=== PATIENT | male | born 1960 | race Caucasian/White ===

== ENCOUNTER → 2018-11-18 | Outpatient (CLI) | payer MEDICARE ==
[~2018-11-18] VITALS: Ht 180.3 cm; Wt 79.4 kg
[2018-11-18] VITALS (11 sets, daily range): BP systolic 161–200; BP diastolic 86–104
[~2018-11-18] MED LIST: ACETAMINOPHEN325 M1 PO; ASPIR 8181 MG PO; ASPIRIN EC325 M1 PO; ASPIRIN325 PO; COLACE 100 MG100 MG PO; D3 + K2 DOTS 11 EACH PO; ENOXAPARIN30 MG/0.3 SQ; FISH OIL 1,0001 EAC5 PO; FOLIC ACID 40400 MCG PO; HUMALOG100 UNIT/1 SUBQ; HYDRALAZINE 10M10 MG PO; HYDRALAZINE 2525 M1 PO; IRON325 PO; LEVEMIR100 UNIT/1 SUBQ; LIPITOR40 MG PO; LISINOPRIL10 MG PO; MOM PO; NITROGLYCERIN0.4 MG SUBLING; NORCO 5-325 TA1 EACH PO; NORVASC10 MG PO; NORVASC5 MG PO; PLAVIX 75 MG TA75 M1 PO; RENVELA800 MG PO; TOPROL XL25 MG PO; VANCOMYCIN750 MG/151 IV; VITAMIN B-12500 MC3 PO; VITAMIN B-6100 MG PO; WELLBUTRIN100 MG PO; ZESTRIL10 MG PO; ZOCOR40 MG PO; bumex PO
[2018-11-18 08:38] LABS: HEMOGLOBIN 12.1 gm/dL (14.0-18.0); MCH 29.9 pg (26.0-34.0); MCHC 33.5 g/dL (28.0-37.0); MCV 89.3 fL (80.0-100.0); MPV 8.9 fl. (7.2-11.1); RBC 4.03 mil/uL (4.50-6.00); RDW-CV 15.3 % (10.5-14.5); WBC 5.3 thou/uL (4.0-11.0)
[2018-11-18 08:51] LABS: APTT 21.3 Seconds (25.0-31.3); INR 0.9; PROTIME 9.7 Seconds (9.20-11.50)
[2018-11-18 09:12] LABS: ALBUMIN 3.9 g/dL (3.4-5.0); ALKALINE PHOSPHATASE 89 U/L (46-116); ANION GAP 7 mmol/L (7-16); BUN 40 mg/dL (7-18); CALCIUM 8.7 mg/dL (8.5-10.1); CHLORIDE 98 mmol/L (98-107); CHOLESTEROL 131 mg/dL (<200); CO2 31 mmol/L (21-32); CREATININE 4.7 mg/dL (0.6-1.3); GLUCOSE 307 mg/dL (70-99); HDL CHOLESTEROL 89 mg/dL (>40); LDL CHOLESTEROL 31 mg/dL (<100); POTASSIUM 4.9 mmol/L (3.5-5.1); SERUM ASSESSMENT Clear; SGOT 17 U/L (15-37); SGPT 24 U/L (30-65); SODIUM 136 mmol/L (136-145); TC:HDL 1.5 Ratio (Not establshd); TOTAL BILIRUBIN 0.5 mg/dL (<0.1-1.0); TOTAL PROTEIN 7.4 g/dL (6.4-8.2); TRIGLYCERIDE 58 mg/dL (<150); VLDL 12 mg/dL (<40)
[2018-11-18 11:58] LABS: HEMATOCRIT 33.1 % (42.0-52.0); HEMOGLOBIN 11.7 gm/dL (14.0-18.0); MCH 31.5 pg (26.0-34.0); MCHC 35.3 g/dL (28.0-37.0); MCV 89.3 fL (80.0-100.0); MPV 8.7 fl. (7.2-11.1); RBC 3.71 mil/uL (4.50-6.00); RDW-CV 14.9 % (10.5-14.5); WBC 6.1 thou/uL (4.0-11.0)
[2018-11-18 12:19] LABS: ALBUMIN 3.5 g/dL (3.4-5.0); CALCIUM 8.7 mg/dL (8.5-10.1); CREATININE 4.7 mg/dL (0.6-1.3); TOTAL BILIRUBIN 0.4 mg/dL (<0.1-1.0); TOTAL PROTEIN 6.7 g/dL (6.4-8.2)
--- NOTE | 2018-11-18 15:39 | EKG ---
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
--- NOTE | 2018-11-18 15:42 | EKG ---
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
--- NOTE | 2018-11-18 17:08 | CARD ---
[address] [address] CARDIAC CATH REPORT Name: BRANDI BARBER Room: [facility] POLIManuela Krishnan#: [id number] Admission: 11/18/18 Attend Phys: Devner Carey MD, F Discharge: Date of : 62 Report #: [id number] THIS REPORT FOR: //name// APPROVED REPORT Study performed: 11/18/2018 08:07:57 Patient Details Patient Status: Out-Patient Room #: The patient is a 57 year-old male Event Personnel Denver Carey Senior Warehouse Clerk, Evelia Bah RN RN, Sourav Means (Deonte) Alina Rosario Brad COMPENSATION ADVISOR Monitor Procedures Performed Left Heart Cath w/or w/o Coronaries [id number] [facility] JENN[address]ER Place w/wo Plasty Single LAD [id number] , Selective Right and Left Coronary Angiography Indication Positive stress test Risk Factors Hypercholesterolemia, Hypertension, Diabetes , Dialysis Admission/Lab Medications/Medications given during procedure Heparin Unfract. Procedure Narrative The patient was brought electively to the Cardiac Catheterization Laboratory and was prepped and draped in a sterile manner. The right wrist was infiltrated with 2% Lidocaine subcutaneous anesthesia. A Slender Glidesheath sheath was inserted into the right radial artery. Coronary angiography was performed using coronary diagnostic catheters. The right coronary system was accessed and visualized with a 6 fr JL4 catheter. The left coronary system was accessed and visualized with a 6fr JR4 catheter. Left ventricular/Aortic Valve gradient assessed via catheter pullback. Closure device was deployed with a 6 Fr vasc-band. The patient tolerated the procedure well and there were no complications associated with the procedure. There was no hematoma. Intraoperative [place] [address] CARDIAC CATH REPORT Name: BRANDI BARBER Room: [facility]#: [id number] Admission: 11/18/18 Attend Phys: Denver Carey MD, F Discharge: Date of : 62 Report #: [id number] Sedation start time: 948 Case end Time: 1026 Fentanyl 50 mcg Fluoro Time: 4.0 minutes Dose: DAP 76413 cGycm2 51 mGy Contrast Type and Amount: Visipaque 190 ml Coronary Angiography The patient's coronary anatomy is right dominant. Diagnostic Cath Left Main 0% stenosis LAD 80% ostial stenosis, and 40% distal stenosis noted Circumflex distal circumflex had a 90% stenosis just prior to birfurcating into 2 small terminal posterolateral branches OM1 50% mid stenosis Right Coronary 0% stenosis Ramus 0% stenosis Left Ventriculography Left Ventriculography was not performed. Hemodynamics The aortic pressure is 100/44 mmHg with a mean of 67 mmHg. The left ventricular pressure is 93/5 mmHg with a mean of mmHg. The left ventricular end diastolic pressure is 6 mmHg. There was no gradient across the aortic valve upon pullback. Pullback from the left ventricle to the aorta revealed no gradient across the aortic valve. PCI Technique Lesion Anticoagulation was achieved with Heparin. Patient was preloaded with Plavix. Percutaneous coronary intervention was performed on the proximal left anterior descending artery segment. The lesion stenosis prior to intervention was 80% with GAGE 3 flow. A 6F XB LAD 3.5 Guide Catheter was used to engage the LM ostium. A IG: BMW 190cm Interventional Guidewire was used to cross the lesion. STENT DEPLOYMENT A drug-eluting stent Xience Esme 3.0X15mm was inserted and inflated up to 12.00atm for 18seconds. Repeat angiography revealed the following post-stent deployment results: 0% stenosis. Additional Inflation: 14.00atm for 17seconds. Final angiography reveals 0 % stenosis with GAGE 3 [place] [address] CARDIAC CATH REPORT Name: BRANDI BARBER Room: [facility]#: [id number] Admission: 11/18/18 Attend Phys: Denver Carey MD, F Discharge: Date of : 62 Report #: [id number] flow. Conclusion 1. 80% stenosis of the lad ostium 2. 90% stenosis of the distal circumflex prior to bifurcating into 2 small terminal posterolateral branches 3. successful placement of a drug eluting stent in the proximal lad Recommendations Cardiac Rehabilitation Referral Aggressive Medical Therapy <ELECTRONICALLY SIGNED> By: Denver Carey MD, FACC 11/18/181707 07 07Dajoaquin Carey MD, [facility] /INF
== END | disposition home or self-care (01) ==
LOC: M.CL 07:52
PROVIDERS: Internal Medicine Cardiovascular Disease
DX: I25.10 Atherosclerotic heart disease of native coronary artery without angina pectoris (principal); I10 Essential (primary) hypertension; E10.9 Type 1 diabetes mellitus without complications; E78.00 Pure hypercholesterolemia, unspecified; G62.9 Polyneuropathy, unspecified; Z90.49 Acquired absence of other specified parts of digestive tract; Z86.73 Personal history of transient ischemic attack (TIA), and cerebral infarction without residual deficits; Z98.890 Other specified postprocedural states; Z79.82 Long term (current) use of aspirin; Z79.899 Other long term (current) drug therapy; Z79.4 Long term (current) use of insulin; Z79.01 Long term (current) use of anticoagulants

== ENCOUNTER 2019-01-01 07:50 | Observation (INO) | payer MEDICARE, BC ==
[~2019-01-01] VITALS: Ht 180.3 cm; Wt 73.9 kg
--- NOTE | ~2019-01-01 | D ---
[address] [address] DISCHARGE SUMMARY Name: TALITAHoangBRANDI Room: [address] Megan MBelen#: [id number] Admission: 01/01/19 Attend Phys: Anthony Edwards MD, Discharge: 01/02/19 Date of : 62 Report #: [id number] THIS REPORT FOR: //name// CC: Saroj Edwards DATE OF SERVICE: 01/02/2019 FINAL DISCHARGE DIAGNOSES: 1. Coronary artery disease with angina. 2. Status post percutaneous coronary intervention to the circumflex with prior percutaneous coronary intervention of the left anterior descending. 3. Hyperlipidemia. 4. Hypertension. 5. Diabetes mellitus. 6. End-stage renal disease. PROCEDURES: 01/01/2019 -- left heart catheterization, selective coronary arteriography and percutaneous coronary intervention of the first marginal branch of the circumflex. HOSPITAL COURSE: The patient is a very pleasant 58-year-old male with hypertension, diabetes, end-stage renal disease and coronary artery disease. He underwent prior percutaneous coronary intervention to the proximal LAD. It was noted to have a significant circumflex lesion at that time, which was not approached in the acute setting. He was readmitted on 01/01/2019 and underwent cardiac catheterization, which revealed a widely patent proximal LAD stent with 75-80% tubular first marginal narrowing. There was 80% narrowing of a small distal circumflex. Given this data, I elected to proceed with percutaneous coronary intervention to the first marginal branch of the circumflex, deploying one 2.5 x 28 mm Xience Esme drug-eluting stent with 0% residual narrowing and GAGE 3 flow of the distal vessel. The patient did well post-procedurally and there was good hemostasis at the right radial side of catheterization. Troponin iva inconsequentially to 0.43 units. Lab on 01/02/2019 revealed sodium 141, potassium 4.3, BUN 53, creatinine 5.8, glucose 63 mg percent. Hemoglobin 12.6, white blood cell count 5900 with 219,000 platelets. Cholesterol 131, HDL 66, LDL 58, triglycerides 77 mg percent. He ambulated in the hallways without difficulty and as noted above, there was good hemostasis at the right radial site of catheterization. He was discharged to home on the following medications: Amlodipine 10 mg daily, aspirin 81 mg daily, atorvastatin 40 mg daily, clopidogrel or Plavix [address] [place] [address] DISCHARGE SUMMARY Name: PAVAN BARBERBARBARA ARCINIEGA [address] [id number] Admission: 01/01/19 Attend Phys: Anthony Edwards MD, Discharge: 01/02/19 Date of : 62 Report #: [id number] with 600 mg dose given periprocedurally, cyanocobalamin or vitamin B12 500 mcg daily, ferrous sulfate 65 mg daily, folic acid 400 mcg daily, Lantus insulin 16 units at bedtime, Humalog insulin 5 units before meals, metoprolol succinate 25 mg daily, pyridoxine or vitamin B6 100 mg daily, sevelamer or Renvela 800 mg t.i.d., sodium bicarbonate 1000 mg b.i.d., vitamin D3 daily, Bumex 2 mg daily and p.r.n. sublingual nitroglycerin. The patient is scheduled to return to see Dr. Pearson on 01/22/2019 at 1130 hours. Thus, the patient is discharged to home in stable condition on the aforementioned medications with followup as iterated above. By: 0933 Jairo Edwards MD, [facility] /nt
[2019-01-01] MEDS ORDERED: HUMALOG100 UNIT/1 SUBQ (08:38)
[2019-01-01] MEDS ORDERED: LANTUS SUBQ (08:38)
[2019-01-01] MEDS ORDERED: SODIUM BICARBO454 GM PO (08:40)
[2019-01-01 09:04] VITALS: BP 114/72
[2019-01-01 09:15] LABS: HEMATOCRIT 36.8 % (42.0-52.0); HEMOGLOBIN 12.1 gm/dL (14.0-18.0); MCH 30.1 pg (26.0-34.0); MCHC 32.9 g/dL (28.0-37.0); MCV 91.3 fL (80.0-100.0); MPV 8.9 fl. (7.2-11.1); RBC 4.03 mil/uL (4.50-6.00); RDW-CV 15.4 % (10.5-14.5); WBC 5.8 thou/uL (4.0-11.0)
[2019-01-01 09:20] LABS: ANION GAP 6 mmol/L (7-16); BUN 38 mg/dL (7-18); CALCIUM 8.8 mg/dL (8.5-10.1); CHLORIDE 97 mmol/L (98-107); CO2 37 mmol/L (21-32); CREATININE 4.5 mg/dL (0.6-1.3); GLUCOSE 385 mg/dL (70-99); POTASSIUM 5.1 mmol/L (3.5-5.1); SODIUM 140 mmol/L (136-145)
[2019-01-01 09:23] LABS: APTT 27.6 Seconds (25.0-31.3); PROTIME 10.3 Seconds (9.20-11.50)
[2019-01-01 10:11] LABS: CHOLESTEROL 131 mg/dL (<200); HDL CHOLESTEROL 66 mg/dL (>40); LDL CHOLESTEROL 50 mg/dL (<100); TRIGLYCERIDE 77 mg/dL (<150); VLDL 15 mg/dL (<40)
[2019-01-01 10:14] LABS: SERUM ASSESSMENT Clear
[2019-01-01 14:16] VITALS: BP 114/72
[2019-01-01 16:20] VITALS: BP 206/95
--- NOTE | 2019-01-01 16:37 | EKG ---
[place] [address] ELECTROCARDIOGRAM REPORT Name: TALITAHoangBRANDI Room: [address] M.R.#: [id number] Admission: 01/01/19 Attend Phys: Anthony Edwards MD, Discharge: Date of : 62 Report #: [id number] THIS REPORT FOR: //name// 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: : 1960 Requested By: Anthony Edwards Order Number: [id number] Reading MD: Berny Pearson Measurements Intervals [place] Rate: 67 P: 67 AR: 193 QRS: -5 QRSD: 91 T: 63 QT: 451 QTc: 476 Interpretive Statements Sinus rhythm Abnormal R-wave progression, early transition Abnormal inferior Q waves ST elevation, consider inferior injury Borderline prolonged QT interval Baseline wander in lead(s) V1,V5 Compared to ECG 11/18/2018 11:15:16 Inferior Q waves now present Q waves now present ST (T wave) deviation now present Myocardial infarct finding now present Electronically Signed On 01-01-2019 16:37:30 CDT by Berny Pearson [email or web address] <ELECTRONICALLY SIGNED> By: Berny Pearson MD, [facility] 01/01/19 1637 1156 1156 Berny Pearson MD, [facility] /EPI
--- NOTE | 2019-01-01 16:37 | EKG ---
[place] [address] ELECTROCARDIOGRAM REPORT Name: BRANDI BRABER Room: [address] M.R.#: [id number] Admission: 01/01/19 Attend Phys: Anthony Edwards MD, Discharge: Date of : 62 Report #: [id number] THIS REPORT FOR: //name// [facility] Test Date: 2019-01-01 Test Time: 09:07:04 Pat Name: BRANDI BARBER Department: Room: [facility] Gender: M Educational Therapist: : 1960 Requested By: Anthony Edwards Order Number: [id number] Reading MD: Berny Pearson Measurements Intervals [place] Rate: 70 P: 61 CA: 193 QRS: -5 QRSD: 83 T: 73 QT: 437 QTc: 472 Interpretive Statements Sinus rhythm Abnormal R-wave progression, early transition Minimal ST elevation, inferior leads Compared to ECG 11/18/2018 11:15:16 ST (T wave) deviation now present Electronically Signed On 01-01-2019 16:36:58 CDT by Berny Pearson [email or web address] <ELECTRONICALLY SIGNED> By: Berny Pearson MD, FAC 01/01/19 1636 Berny Pearson MD, [facility] /EPI
--- NOTE | 2019-01-01 18:43 | NUR ---
PATIENT RESTING IN BED. NEFTALI HAD HYPERTENSION AFTER CARDIAC CATH AND WAS GIVEN METOPROLO ANND AMLODIPINE PER DR MARIA. CODYKY ROUNDING COMPLETED FOR PATIENT SAFETY
[2019-01-01 20:00] VITALS: BP 156/52
[2019-01-02] VITALS: BP 122/62
[2019-01-02 04:00] VITALS: BP 158/66
--- NOTE | 2019-01-02 05:13 | NUR ---
PT ALERT ORIENTED. UP WITH WALKER AND STAND BY ASSIST. TELEMETRY SHOWS SR. ON RA. PLAN FOR DC TODAY.
[2019-01-02 08:18] LABS: HEMATOCRIT 37.3 % (42.0-52.0); HEMOGLOBIN 12.6 gm/dL (14.0-18.0); MCH 30.4 pg (26.0-34.0); MCHC 33.9 g/dL (28.0-37.0); MCV 89.6 fL (80.0-100.0); MPV 8.8 fl. (7.2-11.1); RBC 4.16 mil/uL (4.50-6.00); RDW-CV 14.8 % (10.5-14.5); WBC 5.9 thou/uL (4.0-11.0)
[2019-01-02 08:39] LABS: ALBUMIN 3.7 g/dL (3.4-5.0); CALCIUM 9.3 mg/dL (8.5-10.1); CREATININE 5.8 mg/dL (0.6-1.3); POTASSIUM 4.3 mmol/L (3.5-5.1); TOTAL BILIRUBIN 0.4 mg/dL (<0.1-1.0); TOTAL PROTEIN 7.6 g/dL (6.4-8.2); TROPONIN-I LEVEL 0.43 ng/mL (<0.06)
[2019-01-02 09:25] VITALS: BP 154/61
--- NOTE | 2019-01-02 10:49 | CARD ---
[address] [address] CARDIAC CATH REPORT Name: BRANDI BARBER Room: [address] Megan Krishnan#: [id number] Admission: 01/01/19 Attend Phys: Anthony Edwards MD, Discharge: 01/02/19 Date of : 62 Report #: [id number] THIS REPORT FOR: //name// APPROVED REPORT Study performed: 01/01/2019 09:12:34 Patient Details The patient is a 58 year-old male Event Personnel Anthony Edwards Shell Molding Roller Blast Operator, Lucy Hamilton Cone Treater, Sourav Means (R) Monitor, Collins Fuller RN COMPLEX CARE Scrub Procedures Performed JENNIFER Place w/wo Plasty Addl BR OM 1 C9601 DESADDL; left heart catheterization and selective coronary arteriography Indication Chest pain Risk Factors Hypercholesterolemia, Hypertension Previous Procedures/Diagnoses Previous PCI Admission/Lab Medications/Medications given during procedure Aspirin, Platelet Aff. Inhib., Angiomax bolus and infusion Procedure Narrative The patient was brought electively to the Cardiac Catheterization Laboratory and was prepped and draped in a sterile manner. The right wrist was infiltrated with 2% Lidocaine subcutaneous anesthesia. A Slender Glidesheath sheath was inserted into the . Coronary angiography was performed using coronary diagnostic catheters. The right coronary system was accessed and visualized with a JR4 5fr catheter. The left coronary system was accessed and visualized with a 6F XB LAD 3.5 catheter. The left ventricle was accessed and visualized with a Diagnostic catheter. Closure device was deployed with a Fr Vascband. The patient tolerated the procedure well and there were no complications associated with the procedure. [place] [address] CARDIAC CATH REPORT Name: ELISABETHBRANDI Room: [address] Megan Krishnan#: [id number] Admission: 01/01/19 Attend Phys: Anthony Edwards MD, Discharge: 01/02/19 Date of : 62 Report #: [id number] Intraoperative Conscious Sedation Fentanyl mcg Dose: 1592 mGy Contrast Type and Amount: Visipaque 210 ml Coronary Angiography The patient's coronary anatomy is right dominant. Diagnostic Cath Left Main 0% narrowing LAD Widely patent proximal LAD stent with 50% distal LAD narrowing Circumflex 80% tubular narrowing of the prominent first marginal branch of the circumflex with 80% stenosis of a very small distal posterior division of the circumflex Right Coronary 0% narrowing Hemodynamics The aortic pressure is 101/52 mmHg with a mean of 73 mmHg. The left ventricular pressure is 105/-1 mmHg with a mean of mmHg. The left ventricular end diastolic pressure is 1 mmHg. There was no gradient across the aortic valve upon pullback. PCI Technique Lesion Anticoagulation was achieved with Angiomax. Percutaneous coronary intervention was performed on the first obtuse marginal branch segment. The lesion stenosis prior to intervention was 80% with GAGE 3 flow. A 6F XB LAD 3.5 Guide Catheter was used to engage the ostium. A IG: BMW 190cm Interventional Guidewire was used to cross the lesion. BALLOON DILATION A Balloon catheter Trek RX 2.25 X 15 was inserted and inflated up to 16.00atm for 13seconds. STENT DEPLOYMENT A stent Xience Esme 2.5X28mm was inserted and inflated up to 16.00atm for 13seconds. Final angiography reveals 0 % stenosis with GAGE 3 flow. Conclusion #1 significant coronary artery disease characterized by the following: [place] [address] CARDIAC CATH REPORT Name: TALITAHoangBRANDI Room: [address] Megan Krishnan#: [id number] Admission: 01/01/19 Attend Phys: Anthony Edwards MD, Discharge: 01/02/19 Date of : 62 Report #: [id number] A widely patent proximal LAD stent with 50% distal LAD narrowing B 80% tubular stenosis of the prominent first marginal branch of the circumflex with 80% narrowing of a small distal circumflex #2 normal left-sided hemodynamics study #3 successful percutaneous coronary intervention with deployment of a drug-eluting stent at site of 80% tubular first marginal stenosis with 0% residual narrowing and GAGE-3 flow the distal vessel Recommendations Cardiac Risk Reduction Program Medications Administered Clopidogrel Diagnostic Cath Approved by: Anthony Edwards MD Date/Time: 01/02/2019 10:48:29 <ELECTRONICALLY SIGNED> By: Anthony Edwards MD, [facility] 01/02/19 1049 1049 1049Anthony Edwards MD, [facility] /INF
--- NOTE | 2019-01-02 13:08 | NUR ---
ORDER RECEIVED TO DISCHARGE PATIENT HOME TO SELF CARE. MED REC, MEDICATION EDUCATION, STROKE EDUCATION, AND NEED FOR FOLLOW UP APPOINTMENTS COVERED WITH PATIENT AND STATED UNDERSTOOD. NO LIFTING WITH RIGHT ARM OVER 10 POUNDS FOR 1 WEEK WAS EXPLAINED AND STATED UNDERSTOOD BY PATIENT. DISCHARGE TIME OF 10:25. PAITENT TAKEN VIA WHEELCHAIR BY STAFF TO AWAITING CAR WITH SPOUSE PRESENT. DISCHAREG TIME OF 10:25.
--- NOTE | 2019-01-03 11:38 | EKG ---
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: : 1960 Requested By: Anthony Edwards Order Number: [id number] Reading MD: Berny Pearson Measurements Intervals [place] Rate: 63 P: 60 ID: 188 QRS: -8 QRSD: 89 T: 75 QT: 456 QTc: 467 Interpretive Statements Sinus rhythm Abnormal inferior Q waves Minimal ST elevation, inferior leads Compared to ECG 01/01/2019 11:56:48 Myocardial infarct finding no longer present ST (T wave) deviation still present Electronically Signed On 01-03-2019 11:38:12 CDT by Berny Pearson [email or web address] <ELECTRONICALLY SIGNED> By: Berny Pearson MD, [facility] 01/03/19 1138 7 7 Berny Pearson MD, [facility] /EPI
== END 2019-01-02 10:38 | disposition home or self-care (01) ==
LOC: M.CL 07:50 → M.TBA-CV 10:56 → M.2W 13:35
PROVIDERS: ADMIT Internal Medicine
DX: I25.119 Atherosclerotic heart disease of native coronary artery with unspecified angina pectoris (principal); E78.00 Pure hypercholesterolemia, unspecified; E78.5 Hyperlipidemia, unspecified; I12.0 Hypertensive chronic kidney disease with stage 5 chronic kidney disease or end stage renal disease; E11.22 Type 2 diabetes mellitus with diabetic chronic kidney disease; N18.6 End stage renal disease; Z98.61 Coronary angioplasty status

== ENCOUNTER → 2019-01-04 | Outpatient (CLI) | payer MEDICARE, BC ==
[~2019-01-04] MED LIST changes: +BACTRIM DS TAB1 EACH PO; +KEFLEX500 M1 PO; +LANTUS SUBQ; +LANTUS100 UNIT/M SUBQ; +LEVAQUIN 500 M500 M3 PO; +SODIUM BICARBO454 GM PO; -VITAMIN B-12500 MC3 PO; +VITAMIN B-12500 MCG PO
== END ==
LOC: M.LAB 15:25
DX: R73.09 Other abnormal glucose (principal)

== ENCOUNTER 2019-01-18 06:56 | Emergency (ER) | payer MEDICARE, BC ==
[~2019-01-18] VITALS: Ht 180.3 cm; Wt 79.8 kg
[~2019-01-18 06:56] MED LIST changes: -BACTRIM DS TAB1 EACH PO; -KEFLEX500 M1 PO; -LANTUS100 UNIT/M SUBQ; -LEVAQUIN 500 M500 M3 PO; +VITAMIN B-12500 MC3 PO; -VITAMIN B-12500 MCG PO
[2019-01-18] MEDS ORDERED: LANTUS100 UNIT/M SUBQ (07:13)
[2019-01-18] MEDS ORDERED: HUMALOG100 UNIT/1 SUBQ (07:13)
[2019-01-18 08:11] LABS: ABSOLUTE BASOPHILS 0.1 thou/uL (0.0-0.2); ABSOLUTE EOSINOPHILS 0.1 thou/uL (0.0-0.7); ABSOLUTE LYMPHOCYTES 0.7 thou/uL (0.8-5.3); ABSOLUTE NEUTROPHILS 7.8 thou/uL (1.6-8.1); BASOPHILS 0.8 %; EOSINOPHILS 1.5 %; HEMATOCRIT 33.2 % (42.0-52.0); HEMOGLOBIN 11.4 gm/dL (14.0-18.0); LYMPHOCYTES 7.6 %; MCH 30.9 pg (26.0-34.0); MCHC 34.4 g/dL (28.0-37.0); MCV 89.7 fL (80.0-100.0); MONOCYTES 10.5 %; MPV 8.5 fl. (7.2-11.1); NUCLEATED RBCS 0 /100WBC; PLATELET COUNT* 230 thou/uL (150-400); POLYS 79.6 %; RDW-CV 14.2 % (10.5-14.5); WBC 9.8 thou/uL (4.0-11.0)
[2019-01-18 08:24] LABS: CALCIUM 9.4 mg/dL (8.5-10.1); CREATININE 5.8 mg/dL (0.6-1.3); POTASSIUM 4.9 mmol/L (3.5-5.1)
[2019-01-18 08:29] LABS: ALBUMIN 3.4 g/dL (3.4-5.0); TOTAL BILIRUBIN 0.4 mg/dL (<0.1-1.0); TOTAL PROTEIN 7.7 g/dL (6.4-8.2)
[2019-01-18] MEDS ORDERED: BACTRIM DS TAB1 EACH PO (08:47)
[2019-01-18] MEDS ORDERED: KEFLEX500 M1 PO (08:47)
[2019-01-18 08:55] VITALS: BP 139/73
== END 2019-01-18 08:56 | disposition home or self-care (01) ==
LOC: M.ERS 06:56
PROVIDERS: Family Medicine
DX: E10.621 Type 1 diabetes mellitus with foot ulcer (principal); E10.40 Type 1 diabetes mellitus with diabetic neuropathy, unspecified; E78.00 Pure hypercholesterolemia, unspecified; Z90.49 Acquired absence of other specified parts of digestive tract

== ENCOUNTER 2019-01-20 11:23 | Inpatient (IN) | payer MEDICARE, BC ==
[~2019-01-20] VITALS: Ht 152.4 cm; Wt 77.5 kg
--- NOTE | ~2019-01-20 | CON ---
[facility] [address] [place] [address] CONSULTATION Name: BRANDI BARBER Room: [address] IN M.R.#: [id number] Admission: 01/20/19 Attend Phys: Glenys Leblanc Discharge: Date of : 62 Report #: [id number] THIS REPORT FOR: //name// CC: Saroj Link DATE OF SERVICE: 01/23/2019 CHIEF COMPLAINT: Followup of amputation, right fourth and fifth toes with osteomyelitis. Surgical pathology revealed osteomyelitis to both toes with clear disarticulation margins. He is on parenteral vancomycin and ceftriaxone. He feels well, afebrile with good appetite. He is dialyzing this morning. Surgical tissue cultures grew Streptococcus viridans. No new labs for review. PHYSICAL EXAMINATION: The incision is well approximated with decreased inflammation and no dehiscence or signs of acute vascular embarrassment. There is no active bleeding or drainage. There was scant sanguinous drainage in his foot bandage. The foot is warm, no underlying fluctuance or crepitation. Yovana-incision capillary refill roughly 0.5 seconds. IMPRESSION: Status post right fourth and fifth toe amputation for osteomyelitis, type 2 diabetes mellitus, peripheral arterial disease, end-stage renal disease, on dialysis. PLAN: The incision was cleansed and redressed with sterile gauze, ABD, Kerlix and Tesfaye bandage. The patient to remain weightbearing as tolerated to the extremity with assistive device. By: 1121 0324Dpratima Wen DPM /sierra
--- NOTE | ~2019-01-20 | CON ---
[facility] [address] [place] [address] CONSULTATION Name: BRANDI BARBER Room: [address] IN M.R.#: [id number] Admission: 01/20/19 Attend Phys: Glenys Leblanc Discharge: Date of : 62 Report #: [id number] THIS REPORT FOR: //name// CC: Saroj Link DATE OF SERVICE: 01/24/2019 CHIEF COMPLAINT: Postoperative amputation, right fourth and fifth toes for osteomyelitis. He is on parenteral vancomycin and ceftriaxone. Surgical cultures grew Streptococcus viridans and gram-negative rods. Surgical pathology positive for osteomyelitis to both the right fourth and fifth toes with clear disarticulation margins. Arterial Doppler was negative for focal stenosis with triphasic waveforms to both ankles. He feels well with good appetite, denies foot or leg pain. No new labs for review. PHYSICAL EXAMINATION: Right foot incision is well approximated with decreased inflammation which is low grade at this point. There is no pallor, cyanosis or signs of acute vascular embarrassment. Yovana-incision capillary refill roughly 0.5 seconds. Minimal sanguinous drainage on his bandage, no active bleeding, no underlying fluctuance or crepitation. No other lesions to the foot noted. IMPRESSION: Status post amputation, right fourth and fifth toes for osteomyelitis, type 2 diabetes mellitus, peripheral arterial disease, end-stage renal disease, on dialysis. PLAN: The incision was cleansed and dried and redressed with sterile gauze, Kerlix and Tesfaye wrap. He may ambulate in a surgical shoe, weightbearing as tolerated. Instructed to rest and elevate the foot. Antibiotics per Infectious Disease. I will follow up with him at [facility] next week. I will order home health care for dressing changes 3 times a week with Aquacel AG, ABD, Kerlix and Tesfaye. By: 1234 0132Dpratima Wen DPM /sierra
--- NOTE | ~2019-01-20 | CON ---
[facility] [address] [place] [address] CONSULTATION Name: BRANDI BARBER Room: [address] IN M.R.#: [id number] Admission: 01/20/19 Attend Phys: Glenys Leblanc Discharge: Date of : 62 Report #: [id number] THIS REPORT FOR: //name// CC: Saroj Link CHIEF COMPLAINT: Postoperative day #2 for amputation of right fourth and fifth toes for osteomyelitis. He is on parenteral ceftriaxone with good tolerance. Surgical cultures showed Gram-positive cocci, ID and sensitivity pending. Arterial Dopplers showed triphasic waveforms throughout both lower extremities with no focal stenosis. He dialyzes Tuesdays, and Saturdays. He feels well, good appetite, denies foot pain. LABORATORY DATA: WBC 7.9, RBC 3.36, hemoglobin 10.2, hematocrit 30.4, platelets 251. BUN 23, creatinine 3.9, glucose 114, albumin 3.1. PHYSICAL EXAMINATION: Temperature 99.1, pulse 71, respiration 17, blood pressure 134/67. The incision is well coapted with mild inflammation and no dehiscence, drainage or bleeding. Immediate demetria-incision capillary refill with no signs of acute vascular embarrassment. No underlying fluctuance or crepitation. The foot is warm with no acute vascular changes. The leg cellulitis has resolved, with the cellulitis just peripherally around the incision. IMPRESSION: Osteomyelitis, right fourth toe, status post digital amputation. PLAN: The incision was cleansed, dried and redressed with 4 x 4s, ABD, Kerlix and Tesfaye wrap. The patient may ambulate in a surgical shoe as tolerated. We will follow tomorrow. By: 0738 0002Byron Wen DPM /sierra
[~2019-01-20 11:23] MED LIST changes: +BACTRIM DS TAB1 EACH PO; +KEFLEX500 M1 PO; +LANTUS100 UNIT/M SUBQ; -VITAMIN B-12500 MC3 PO; +VITAMIN B-12500 MCG PO
[2019-01-20 11:45] VITALS: BP 110/57
[2019-01-20 12:32] LABS: ABSOLUTE BASOPHILS 0.2 thou/uL (0.0-0.2); ABSOLUTE EOSINOPHILS 0.1 thou/uL (0.0-0.7); ABSOLUTE NEUTROPHILS 9.2 thou/uL (1.6-8.1); BASOPHILS 1.3 %; EOSINOPHILS 1.2 %; LYMPHOCYTES 8.5 %; MCH 30.2 pg (26.0-34.0); MCHC 33.8 g/dL (28.0-37.0); MCV 89.6 fL (80.0-100.0); MONOCYTES 8.5 %; MPV 8.8 fl. (7.2-11.1); NUCLEATED RBCS 0 /100WBC; PLATELET COUNT* 243 thou/uL (150-400); POLYS 80.5 %; RBC 3.31 mil/uL (4.50-6.00); RDW-CV 14.4 % (10.5-14.5); WBC 11.5 thou/uL (4.0-11.0)
[2019-01-20 12:40] LABS: ALBUMIN 3.1 g/dL (3.4-5.0); CALCIUM 9.2 mg/dL (8.5-10.1); CREATININE 5.1 mg/dL (0.6-1.3); PHOSPHORUS* 3.4 mg/dL (2.5-4.9); POTASSIUM 4.6 mmol/L (3.5-5.1)
[2019-01-20 12:46] LABS: APTT 34.5 Seconds (25.0-31.3); PROTIME 10.2 Seconds (9.20-11.50)
[2019-01-20 12:54] LABS: ALBUMIN 3.1 g/dL (3.4-5.0); CALCIUM 9.1 mg/dL (8.5-10.1); CREATININE 5.2 mg/dL (0.6-1.3); POTASSIUM 4.5 mmol/L (3.5-5.1); TOTAL BILIRUBIN 0.3 mg/dL (<0.1-1.0); TOTAL PROTEIN 7.4 g/dL (6.4-8.2)
[2019-01-20 20:00] VITALS: BP 138/64
[2019-01-21] VITALS: BP 135/66
[2019-01-21 04:00] VITALS: BP 147/71
[2019-01-21 07:56] VITALS: BP 129/67
--- NOTE | 2019-01-21 10:15 | CON ---
[address] [address] CONSULTATION Name: BRANDI BARBER Room: [address] IN M.R.#: [id number] Admission: 01/20/19 Attend Phys: Glenys Leblanc Discharge: Date of : 62 Report #: [id number] THIS REPORT FOR: //name// CC: Saroj Link CONSULTING PHYSICIAN: Vaughn iLnk DO. REASON FOR CONSULTATION: End-stage kidney disease. HISTORY OF PRESENT ILLNESS: A 58-year-old gentleman with a history of end-stage kidney disease, on hemodialysis Tuesdays, and Saturdays; admitted with diabetic foot infection, concerned for osteomyelitis. Orthopedics will be evaluating him while he is here as an inpatient and it is anticipated that he will need surgery. He has been tolerating his dialysis well and has no complaints or concerns. Currently, appears to be comfortable. REVIEW OF SYSTEMS: Constitutional, psych, heme, eyes, ENT, respiratory, cardiac, GI, , endocrine, all negative except as documented above. PAST MEDICAL HISTORY: End-stage kidney disease, insulin-dependent diabetes type 1 with retinopathy, macular degeneration, neuropathy, history of CVA, history of TIA, history of dyslipidemia, secondary hyperparathyroidism and hypertension. SOCIAL HISTORY: No drug use. FAMILY HISTORY: Not pertinent in this gentleman. PHYSICAL EXAMINATION: GENERAL: No acute distress. HEENT: Eyes open. Ears externally normal. NECK: Supple. CARDIOVASCULAR: Regular rate. LUNGS: No crackles. ABDOMEN: Soft. MUSCULOSKELETAL: Nontender. LYMPHATICS: No edema. PSYCHIATRIC: Awake and alert. LABORATORY DATA: From 12/2006: White cell count 9.8, hemoglobin 11.4 and platelets 230. Sodium 130, potassium 4.9, chloride 89, bicarbonate 34, BUN 47, creatinine of 5.8 and glucose 382. Calcium 9.4 and albumin 3.4. ASSESSMENT AND PLAN: 1. End-stage kidney disease, hemodialysis on Friday, and Friday at the [facility]. 2. [place] [address] CONSULTATION Name: BRANDI BARBER Room: [address] IN ..#: [id number] Admission: 01/20/19 Attend Phys: Glenys Leblanc Discharge: Date of : 62 Report #: [id number] 3. Diabetic foot ulcer. 4. Secondary hyperparathyroidism. PLAN: 1. We will follow for dialysis needs. 2. Plan dialysis tomorrow. We will check lab again in the a.m. Thank you for requesting my opinion in the care and management of this patient. <ELECTRONICALLY SIGNED> By: Patti Mora MD 01/21/19 1015 1148 [id number] Carlitos Mroa MD /nt
--- NOTE | 2019-01-21 14:08 | CON ---
[address] [address] CONSULTATION Name: BRANDI BARBER Room: [address] IN M.R.#: [id number] Admission: 01/20/19 Attend Phys: Glenys Leblanc Discharge: Date of : 62 Report #: [id number] THIS REPORT FOR: //name// CC: Saroj Link DATE OF SERVICE: 01/20/2019 ATTENDING PHYSICIAN: Vaughn Link DO REASON FOR EVALUATION: Likely deep seated infection involving the distal aspect of the right foot, specifically 4th and 5th digits. HISTORY OF PRESENT ILLNESS: Chart reviewed. The patient was examined. This is a 58-year-old gentleman known to myself, who has diabetes mellitus, who was actually last hospitalized in 2014 and had a previous transmetatarsal amputation on the left. He noted onset of what appears to be shearing type injury involving lateral aspect of his right foot as well as the dorsum. He states perhaps new shoes were contributing. He does have peripheral neuropathy. Due to increasing inflammation over the course of the last day or two prior to admission, he was evaluated and subsequently admitted. He was found to have no significant bony abnormalities seen on x-ray; however, due to concern about significant devitalized tissue, he is scheduled to undergo operative debridement up to including amputation. Denies any recent fevers or chills. Appetite has been fair. Blood sugars have been well controlled. No pulmonary or gastrointestinal related complaints. ALLERGIES: None known. MEDICATIONS: Currently include ceftriaxone. PAST MEDICAL HISTORY: Above noted diabetes mellitus type 1, peripheral neuropathy, macular degeneration, previous serial toe amputations on the left, previous stroke in 2013, has known vasculopathy, coronary artery disease with previous cardiac arterial stents. Chronic renal insufficiency, on dialysis Friday, and Friday; and history of cataracts. SOCIAL HISTORY: Nonsmoker. Rare ethanol, no illicit drug use. FAMILY HISTORY: Noncontributory. REVIEW OF SYSTEMS: Otherwise, unremarkable 10-point review of systems except noted above history of present illness. PHYSICAL EXAMINATION: GENERAL: He is pleasant, alert, cooperative. [place] [address] CONSULTATION Name: TALITAHoangBRANDI Room: [address] IN [facility]#: [id number] Admission: 01/20/19 Attend Phys: lGenys Leblanc Discharge: Date of : 62 Report #: [id number] said he has lost weight since I have last seen him. He is pleasant, he is not encephalopathic. VITAL SIGNS: Temperature max 99.3, more recently 98.5; pulse 67; respirations 20; blood pressure 110/57. SKIN: Warm and dry. HEENT: Normocephalic. Extraocular muscles intact. NECK: Supple. LUNGS: Clear to auscultation. HEART: Regular rate and has a prominent systolic murmur. ABDOMEN: Soft, nontender, nondistended. EXTREMITIES: Right foot lateral distal aspect, there is some moderate degree of inflammation. There is some devitalized tissue over the base of the fourth and fifth toes including the lateral aspect, there was no particular odor. GENITOURINARY: Deferred. RECTAL: Deferred. LABORATORY DATA: Initial CBC: White count of 9.8, H and H 11.4 and 33.2, platelets of 230. PT of 10.0, INR of 1.0. Electrolytes: Sodium 138, potassium 4.9, chloride 89, bicarbonate is 34, anion gap of 7, BUN and creatinine 47 and 5.8, glucose of 382. LFTs unremarkable. Albumin of 3.4. Total protein of 7.7. Estimated GFR of 10. Lactic acid 1.2. X-ray as noted above. Blood cultures, sterile thus far. CRP elevated at 276.3. ASSESSMENT: Diabetes mellitus complicated by lateral foot and tissue breakdown. I agree with empiric antimicrobial therapy, certainly infectious component, I believe, unclear the degree of vasculopathy. He is scheduled to undergo operative debridement. We will await those findings including cultures and possibly pathology. At this point, he is not overtly toxic. We will monitor expectantly. <ELECTRONICALLY SIGNED> By: Jorgito Whitmore MD 01/21/19 1408 1543 0756Jolilo Whitmore MD /nt
[2019-01-21 20:05] VITALS: BP 130/65
[2019-01-22] VITALS: BP 132/67
[2019-01-22 03:50] LABS: ABSOLUTE BASOPHILS 0.1 thou/uL (0.0-0.2); ABSOLUTE EOSINOPHILS 0.2 thou/uL (0.0-0.7); ABSOLUTE LYMPHOCYTES 1.1 thou/uL (0.8-5.3); ABSOLUTE MONOCYTES 0.8 thou/uL (0.0-1.2); ABSOLUTE NEUTROPHILS 5.8 thou/uL (1.6-8.1); HEMATOCRIT 30.4 % (42.0-52.0); HEMOGLOBIN 10.2 gm/dL (14.0-18.0); LYMPHOCYTES 14.3 %; MCH 30.2 pg (26.0-34.0); MCHC 33.4 g/dL (28.0-37.0); MCV 90.5 fL (80.0-100.0); MONOCYTES 9.5 %; MPV 8.5 fl. (7.2-11.1); NUCLEATED RBCS 0 /100WBC; PLATELET COUNT* 251 thou/uL (150-400); POLYS 73.2 %; RBC 3.36 mil/uL (4.50-6.00); RDW-CV 14.8 % (10.5-14.5); WBC 7.9 thou/uL (4.0-11.0)
[2019-01-22 04:00] VITALS: BP 134/67
[2019-01-22 04:05] LABS: CALCIUM 8.6 mg/dL (8.5-10.1); POTASSIUM 4.4 mmol/L (3.5-5.1)
[2019-01-22 04:24] LABS: CREATININE 3.9 mg/dL (0.6-1.3)
--- NOTE | 2019-01-22 07:39 | OP ---
[address] [address] OPERATIVE REPORT Name: BRANDI BARBER Room: [address] IN M.R.#: [id number] Admission: 01/20/19 Attend Phys: Glenys Leblanc Discharge: Date of : 62 Report #: [id number] THIS REPORT FOR: //name// CC: Saroj Link DATE OF SERVICE: 01/20/2019 SURGEON: Byron Wen DPM PREOPERATIVE DIAGNOSIS: Osteomyelitis, right fourth toe with ulcerations to right fourth and fifth toes. POSTOPERATIVE DIAGNOSIS: Osteomyelitis, right fourth toe with ulcerations to right fourth and fifth toes. PROCEDURE: Amputation, right fourth and fifth toes with primary closure over a wick drain. ANESTHESIA: MAC. INJECTABLES: 28 mL of 1:1 mixture of 0.5% Marcaine plain and 1% lidocaine plain. ESTIMATED BLOOD LOSS: Minimal. SPECIMENS: Right fourth and fifth toes. CULTURES: 1. Bone, right fourth toe, aerobic and anaerobic. 2. Soft tissue, right fourth toe, aerobic and anaerobic. SUTURES: 3-0 nylon. COMPLICATIONS: None. DESCRIPTION OF PROCEDURE: The patient was brought to the OR and placed on the table supine with induction of MAC anesthesia. A well-padded right ankle pneumatic tourniquet was placed. A local anesthetic block was given to the foot and extremity was prepped and draped aseptically. The foot was exsanguinated with inflation of the tourniquet. A #10 fresh surgical scalpel was used to create a circumferential incision around the base of the right fourth and fifth toes distal to the MTP joints. Electrocautery was used for intraoperative hemostasis. The toes were disarticulated at the MTP joints and there was some necrotic and infected soft tissue at the plantar aspect of the fourth metatarsophalangeal joint area. The articular surface of the [place] [address] OPERATIVE REPORT Name: BRANDI BARBER Room: [address] IN [facility].#: [id number] Admission: 01/20/19 Attend Phys: Glenys Leblanc Discharge: Date of : 62 Report #: [id number] had a normal appearance with no necrosis or signs of infection, as to the fifth metatarsal head. I removed the infected tissue with scalpel and scissors and used additional electrocautery. The wound was flushed with sterile saline and dried. The skin flap was closed with 3-0 nylon in simple interrupted fashion over a thin Aquacel Ag wick drain. The tourniquet was deflated with normal vascular return to the demetria-incision. The foot was cleansed and dried with a sterile compressive bandage with Betadine-soaked Adaptic, Aquacel Ag, fluffs, ABD, Kerlix and Tesfaye wrap. The patient left the OR with no complications. <ELECTRONICALLY SIGNED> By: Byron Wen DPM 01/22/19 0739 1612 Bella Wen DPM /nt
[2019-01-22 09:16] VITALS: BP 118/50
[2019-01-22 16:10] VITALS: BP 144/74
--- NOTE | 2019-01-22 17:06 | PATH ---
[facility] [address] [place] [address] PATHOLOGY RPT PROCEDURE Name: TALITAHoangMELE Room: [address] IN .R.#: [id number] Admission: 01/20/19 Date of : 62 Discharge: Report #: [id number] Path Case #: [id number] LCA Accession Number: [id number] . 01 Material submitted: . PART A: toe - 4TH TOE, RIGHT FOOT. Modifiers: fourth, right PART B: foot - 5TH TOE, RIGHT FOOT. Modifiers: right, fifth . 01 Clinical history: . Osteomyelitis . 02 Diagnosis: A. Fourth toe right foot: - Benign toe with extensive acute inflammation of soft tissues and extensive osteomyelitis of phalangeal bones, disarticulation margin free of osteomyelitis. . B. Fifth toe right foot: - Benign toe with acute inflammation of soft tissues and osteomyelitis of phalangeal bone, with disarticulation margin free of osteomyelitis. (CHELSEA:pit 01/22/2019) QTP/01/22/2019 . 02 Electronically signed: . Salomon Watkins MD, Pathologist NPI- [id number] . 01 Gross description: . A. The specimen is received in formalin, labeled "Mele Cooper, fourth toe right foot". Received is an amputated digit measuring 5.1 x 2.1 x 1.9 cm in greatest dimensions. The bone margin is smooth and concave in appearance, consistent with disarticulation. The bone and soft tissue margins are inked black. The nail is present displaying a light caban and thickened appearance. The epidermal surface is pale caban, sloughing to pink-red in appearance. A full length longitudinal cross-section is submitted from proximal to distal aspects in cassettes A1 and A2, following decalcification. . B. The specimen is received in formalin, labeled "Mele Cooper, fifth toe right foot". Received is an amputated digit measuring 3.7 x 2.7 x 2.3 cm in greatest dimensions. The bone margin is smooth and concave in appearance, consistent with disarticulation. The bone and soft tissue margins are inked black. The nail is present displaying a light caban and flaky appearance. On the dorsal/lateral aspect of the specimen, there is a well-circumscribed and light caban to bah-caban lesion measuring 1.7 x 1.4 cm, which is 0.8 cm from the closest skin margin. The length longitudinal cross-section is submitted from proximal to distal aspects in cassettes B1 and B2, [place] [address] PATHOLOGY RPT PROCEDURE Name: MELE COOPER Room: [address] ADM IN M.R.#: [id number] Admission: 01/20/19 Date of : 62 Discharge: Report #: [id number] Path Case #: [id number] (CAA; 01/21/2019) QAC/QAC . 02 Pathologist provided ICD-10: M86.8X7, M79.89 . 02 CPT . 702400, 664018, 645391, 703891 Specimen Comment: A courtesy copy of this report has been sent to Specimen Comment: [phone], , . Specimen Comment: Report sent to ,DR SAMUEL / DR HINES Performed at: [address], [place] [id number] MD Sarabjit Munroe MD Phone: [phone] Performed at: [facility] [address], [place], [place] [id number] MD Salomon Watkins MD Phone: [phone]
[2019-01-22 17:13] VITALS: BP 124/68
[2019-01-22 21:00] VITALS: BP 122/62
[2019-01-23 08:00] VITALS: BP 130/58
[2019-01-23 16:00] VITALS: BP 132/58
[2019-01-24] VITALS: BP 126/60
[2019-01-24 08:15] VITALS: BP 114/57
[2019-01-24 15:34] VITALS: BP 117/61
[2019-01-24 21:30] VITALS: BP 131/62
[2019-01-25 07:40] VITALS: BP 118/50
[2019-01-25] MEDS ORDERED: LEVAQUIN 500 M500 M3 PO (11:46)
[2019-01-25 11:47] VITALS: BP 118/50
[2019-01-25 12:37] VITALS: BP 118/50
== END 2019-01-25 13:59 | disposition home health service (06) | DRG 617 ==
LOC: M.ORTHSURG 11:23
PROVIDERS: Internal Medicine Nephrology; ADMIT Internal Medicine
PROC: 0Y6X0Z0 Detachment at Right 5th Toe, Complete, Open Approach (ICD-10-PCS; principal; 2019-01-20)
PROC: 0Y6V0Z0 Detachment at Right 4th Toe, Complete, Open Approach (ICD-10-PCS; principal; 2019-01-20)
DX: E10.69 Type 1 diabetes mellitus with other specified complication (principal); I12.0 Hypertensive chronic kidney disease with stage 5 chronic kidney disease or end stage renal disease; M86.8X7 Other osteomyelitis, ankle and foot; L03.031 Cellulitis of right toe; N18.6 End stage renal disease; N25.81 Secondary hyperparathyroidism of renal origin; H35.30 Unspecified macular degeneration; L97.519 Non-pressure chronic ulcer of other part of right foot with unspecified severity; H26.9 Unspecified cataract; E78.5 Hyperlipidemia, unspecified; I25.10 Atherosclerotic heart disease of native coronary artery without angina pectoris; E10.51 Type 1 diabetes mellitus with diabetic peripheral angiopathy without gangrene; E10.40 Type 1 diabetes mellitus with diabetic neuropathy, unspecified; E10.22 Type 1 diabetes mellitus with diabetic chronic kidney disease; E10.319 Type 1 diabetes mellitus with unspecified diabetic retinopathy without macular edema; E10.621 Type 1 diabetes mellitus with foot ulcer; Z99.2 Dependence on renal dialysis; Z86.73 Personal history of transient ischemic attack (TIA), and cerebral infarction without residual deficits; Z79.84 Long term (current) use of oral hypoglycemic drugs; Z79.82 Long term (current) use of aspirin; Z90.49 Acquired absence of other specified parts of digestive tract; Z95.5 Presence of coronary angioplasty implant and graft

== ENCOUNTER → 2019-02-03 | Outpatient (CLI) | payer MEDICARE, BC ==
[~2019-02-03] MED LIST changes: +LEVAQUIN 500 M500 M3 PO
--- NOTE | 2019-02-05 07:41 | CON ---
[address] [address] CONSULTATION Name: BRANDI BARBER Room: [facility]LE Whitehead.#: [id number] Admission: 02/03/19 Attend Phys: Byron Wen DPM Discharge: Date of : 62 Report #: [id number] THIS REPORT FOR: //name// CC: Saroj Wen DATE OF SERVICE: 02/03/2019 ATTENDING PHYSICIAN: Dr. Byron Wray. HISTORY OF PRESENT ILLNESS: He is seen in the outpatient clinic, [place], [place] for followup of chronic osteomyelitis involving his fourth and fifth toes on his right foot. He is post-amputation at the metatarsophalangeal joints. He has completed roughly 2 weeks of treatment. He was discharged and is on levofloxacin 3 times weekly after dialysis. Denies any significant pain or discomfort, although he has got pretty profound neuropathy. He has not been systemically ill. His appetite has been reasonable. PHYSICAL EXAMINATION: There are some areas of tissue compromise on the lateral aspect. There is a suggestion of possible too much walking. He was debrided to some extent by Dr. Wen. ASSESSMENT AND PLAN: Chronic osteomyelitis. I did review the path report. The margins both of fourth and fifth site with disarticulation were all free of osteomyelitis. Culture did reveal Enterobacter cloacae, which was highly susceptible levofloxacin with an JUNG of less than 0.12. We will continue that approach as prescribed, likely up to 6 weeks. He was strongly encouraged to offload his foot, try to optimize his nutritional status, blood sugar control, etc. We will see him back in 1 week. <ELECTRONICALLY SIGNED> By: Jorgito Whitmore MD 02/05/19 0741 1536 0137Jolilo Whitmore MD /nt
== END ==
LOC: M.WC 05:12
DX: E11.621 Type 2 diabetes mellitus with foot ulcer (principal); L97.512 Non-pressure chronic ulcer of other part of right foot with fat layer exposed; E11.69 Type 2 diabetes mellitus with other specified complication; M86.8X8 Other osteomyelitis, other site; E11.22 Type 2 diabetes mellitus with diabetic chronic kidney disease; N18.6 End stage renal disease; E11.40 Type 2 diabetes mellitus with diabetic neuropathy, unspecified; E11.51 Type 2 diabetes mellitus with diabetic peripheral angiopathy without gangrene; E11.319 Type 2 diabetes mellitus with unspecified diabetic retinopathy without macular edema; I25.10 Atherosclerotic heart disease of native coronary artery without angina pectoris; Z86.73 Personal history of transient ischemic attack (TIA), and cerebral infarction without residual deficits; Z79.4 Long term (current) use of insulin; Z79.82 Long term (current) use of aspirin

== ENCOUNTER → 2019-02-10 | Outpatient (CLI) | payer MEDICARE, BC ==
[2019-02-10 14:40] LABS: HEMATOCRIT 29.3 % (42.0-52.0); HEMOGLOBIN 9.8 gm/dL (14.0-18.0); MCH 30.3 pg (26.0-34.0); MCHC 33.6 g/dL (28.0-37.0); RBC 3.25 mil/uL (4.50-6.00); RDW-CV 15.2 % (10.5-14.5); WBC 5.6 thou/uL (4.0-11.0)
--- NOTE | 2019-02-11 11:48 | CON ---
[address] [address] CONSULTATION Name: BRANDI BARBER Room: [facility].#: [id number] Admission: 02/10/19 Attend Phys: Byron Wen DPM Discharge: Date of : 62 Report #: [id number] THIS REPORT FOR: //name// CC: Saroj Wen DATE OF SERVICE: 02/10/2019 INFECTIOUS DISEASE CONSULTATION FOLLOWUP ATTENDING PHYSICIAN: Dr. Byron Wen. HISTORY OF PRESENT ILLNESS: Here for ongoing treatment for operative wound in the setting of chronic osteomyelitis involving the lateral aspect of the right foot post-amputation. Generally, he has been doing fairly well. He had surgery roughly 3 weeks ago. He has been on enteral therapy with levofloxacin. This is thrice weekly with dialysis for planned 6-week course. He generally denies any systemic illness. He is admitting a good appetite. There is no pulmonary or gastrointestinal related complaints. On evaluation, wound appears to be healing, overall decrease in inflammation noted superficially and laterally appeared to be pressure related seems to have improved as well. ASSESSMENT: Chronic osteomyelitis. At this point, we will extend the antibiotics with levofloxacin thrice weekly. He is to take dose after dialysis, on dialysis days Friday, and Friday. We will see him up in followup in one week. <ELECTRONICALLY SIGNED> By: Jorgito Whitmore MD 02/11/19 1148 1507 0105Jorgito Whitmore MD /sierra
== END ==
LOC: M.WC 00:48
PROVIDERS: Podiatrist Foot & Ankle Surgery
DX: T87.89 Other complications of amputation stump (principal); E11.621 Type 2 diabetes mellitus with foot ulcer; L97.512 Non-pressure chronic ulcer of other part of right foot with fat layer exposed; E11.69 Type 2 diabetes mellitus with other specified complication; M89.8X7 Other specified disorders of bone, ankle and foot; E11.51 Type 2 diabetes mellitus with diabetic peripheral angiopathy without gangrene; E11.42 Type 2 diabetes mellitus with diabetic polyneuropathy; E11.22 Type 2 diabetes mellitus with diabetic chronic kidney disease; N18.6 End stage renal disease; Z99.2 Dependence on renal dialysis; Y83.5 Amputation of limb(s) as the cause of abnormal reaction of the patient, or of later complication, without mention of misadventure at the time of the procedure

== ENCOUNTER → 2019-02-17 | Outpatient (CLI) | payer MEDICARE, BC ==
--- NOTE | 2019-02-19 07:01 | CON ---
[address] [address] CONSULTATION Name: BRANDI BARBER Room: [facility].#: [id number] Admission: 02/17/19 Attend Phys: Byron Wen DPM Discharge: Date of : 62 Report #: [id number] THIS REPORT FOR: //name// CC: Saroj Wen INFECTIOUS DISEASE CONSULTATION FOLLOWUP ATTENDING PHYSICIAN: Dr. Byron Wen. HISTORY OF PRESENT ILLNESS: The patient is here for followup of chronic ulceration in the setting of deep infection associated with the right foot. He noted he generally feels satisfactory. Denies any fevers or chills. Appetite has been okay. Blood culture reportedly is pretty good; however, on examination, Dr. Wen removed a blackened eschar overlying the operative site, but essentially the lateral aspect of the fourth or fifth toe amputation, there is almost complete exposure to the metatarsal head of the fifth and partial exposure to the fourth. He does have some discoloration, it appears to be firm. Currently, it is intact. Overall degree of that tissue is fairly bloody. There is no evident odor, no purulence. He did take out tissue for culture. ASSESSMENT AND PLAN: Chronic osteomyelitis. At this point, we will extend the levofloxacin. Will await culture results. May need to adjust therapy. He does receive this 3 times a week after dialysis. Dr. Wen favored a removal of the metatarsal heads of the 4th and 5th perhaps next week. It appears that the patient was agreeable. We will follow closely. Labs at this point, he is still mildly anemic. Blood sugar is quite elevated on the formal lab draw. Will plan on seeing him in 2 weeks and will be available if he gets admitted to the hospital as well. <ELECTRONICALLY SIGNED> By: Jorgito Whitmore MD 02/19/19 0701 0903 0021Jolilo Whitomre MD /nt
== END ==
LOC: M.WC 05:22
DX: T87.81 Dehiscence of amputation stump (principal); E11.621 Type 2 diabetes mellitus with foot ulcer; L97.512 Non-pressure chronic ulcer of other part of right foot with fat layer exposed; E11.40 Type 2 diabetes mellitus with diabetic neuropathy, unspecified; E11.51 Type 2 diabetes mellitus with diabetic peripheral angiopathy without gangrene; E11.22 Type 2 diabetes mellitus with diabetic chronic kidney disease; N18.6 End stage renal disease; E11.69 Type 2 diabetes mellitus with other specified complication; M86.8X8 Other osteomyelitis, other site; E11.319 Type 2 diabetes mellitus with unspecified diabetic retinopathy without macular edema; I25.10 Atherosclerotic heart disease of native coronary artery without angina pectoris; Z86.73 Personal history of transient ischemic attack (TIA), and cerebral infarction without residual deficits; Z99.2 Dependence on renal dialysis; Y83.5 Amputation of limb(s) as the cause of abnormal reaction of the patient, or of later complication, without mention of misadventure at the time of the procedure

== ENCOUNTER → 2019-02-24 | Day surgery (SDC) | payer MEDICARE, BC ==
[~2019-02-24] MED LIST changes: +BUMEX2 MG PO
--- NOTE | ~2019-02-24 | OP ---
[address] [address] OPERATIVE REPORT Name: TALITAHoangBRANDI Room: [facility].#: [id number] Admission: 02/24/19 Attend Phys: Bryon Wen DPM Discharge: Date of : 62 Report #: [id number] THIS REPORT FOR: //name// CC: Saroj Wen DATE OF SERVICE: 02/24/2019 SURGEON: Byron Wen DPM PREOPERATIVE DIAGNOSIS: Osteomyelitis right 4th and 5th metatarsals with deep tissue infection and nonhealing ulceration. POSTOPERATIVE DIAGNOSIS: Osteomyelitis right 4th and 5th metatarsals with deep tissue infection and nonhealing ulceration. PROCEDURE: 1. Transmetatarsal amputation, right 3rd, 4th and 5th metatarsals. 2. Amputation, right 3rd toe. 3. Incision and drainage, right foot. ANESTHESIA: General LMA. INJECTABLES: 30 mL of 0.5% Marcaine plain and 1% lidocaine plain in a 1:1 mixture. SUTURES: None. SPECIMENS: Right distal 3rd, 4th and 5th metatarsals and 3rd digit. CULTURES: 1. Bone, right 4th metatarsal, aerobic and anaerobic. 2. Soft tissue, right foot, aerobic and anaerobic. ESTIMATED BLOOD LOSS: Roughly 10 mL. COMPLICATIONS: None. HEMOSTASIS: Right ankle pneumatic tourniquet at 275 mmHg. DESCRIPTION OF PROCEDURE: The patient was brought to the OR and placed on the table supine with induction of general LMA anesthesia. A well-padded right ankle pneumatic tourniquet was placed. A local anesthetic block was given to the right foot and ankle; and then the foot was exsanguinated with inflation of the tourniquet. A #10 blade was used to create an incision around the 4th and 5th metatarsals and I debrided all the necrotic [place] [address] OPERATIVE REPORT Name: BRANDI BARBER Room: [facility].#: [id number] Admission: 02/24/19 Attend Phys: Byron Wen DPM Discharge: Date of : 62 Report #: [id number] 4th and 5th metatarsals. The 4th and 5th metatarsals were grossly necrotic with discoloration, lysis of the bone, which was soft to the surgical blade. The 4th and 5th metatarsals were transected through the mid diaphyseal region where the bone was hard and appeared to be free from infection. Examination of the 3rd digit revealed necrosis of the tissue surrounding the 3rd metatarsophalangeal joint with discoloration of the distal 3rd metatarsal head. I elected to amputate the 3rd metatarsal and resect the distal 3rd metatarsal as well. The right 3rd, 4th and 5th metatarsals and right 3rd toe were all sent for gross pathology. A portion of soft bone was taken from the 4th metatarsal and sent for aerobic and anaerobic bone culture. Job Molder infected soft tissue was sent for aerobic and anaerobic soft tissue culture. The wound was thoroughly debrided of as much nonviable tissue as possible, and electrocautery was used for hemostasis. The wound was flushed with sterile saline and dried. It was open packed with Aquacel Ag and covered with fluffs, ABDs, Kerlix and Tesfaye bandage. The tourniquet was released with vascular return to the extremity. The patient left the OR with no complications noted. By: 1529 [id number] Wen DPM /sierra
[2019-02-24 13:47] LABS: HEMATOCRIT 29.3 % (42.0-52.0); HEMOGLOBIN 9.8 gm/dL (14.0-18.0); MCH 29.8 pg (26.0-34.0); MCHC 33.3 g/dL (28.0-37.0); MCV 89.5 fL (80.0-100.0); MPV 8.4 fl. (7.2-11.1); RBC 3.27 mil/uL (4.50-6.00); RDW-CV 15.7 % (10.5-14.5); WBC 7.8 thou/uL (4.0-11.0)
[2019-02-24 13:52] LABS: CALCIUM 9.5 mg/dL (8.5-10.1); CREATININE 4.6 mg/dL (0.6-1.3); POTASSIUM 3.9 mmol/L (3.5-5.1)
[2019-02-24 13:57] LABS: ALBUMIN 3.4 g/dL (3.4-5.0); TOTAL BILIRUBIN 0.5 mg/dL (<0.1-1.0); TOTAL PROTEIN 7.8 g/dL (6.4-8.2)
--- NOTE | 2019-03-01 14:06 | PATH ---
[address] [address] PATHOLOGY RPT PROCEDURE Name: MELE COOPER Room: [facility].#: [id number] Admission: 02/24/19 Date of : 62 Discharge: Report #: [id number] Path Case #: [id number] [facility] Accession Number: [id number] . 01 Material submitted: . PART A: toe - RIGHT 3RD TOE AND METATARSAL. Modifiers: right PART B: toe - RIGHT 4TH TOE METATARSAL. Modifiers: right, fourth PART C: toe - RIGHT 5TH METATARSAL. Modifiers: right, fifth . 01 Clinical history: . Osteomyelitis right foot . 02 Diagnosis: A. Right third toe and metatarsal: - Benign toe including phalangeal bones, with non-specific ulceration and acute inflammation of soft tissues lateral to nail bed, without definite osteomyelitis identified. . B. Right fourth toe metatarsal: - Benign osteocartilaginous segment with prominent osteomyelitis near articular end and opposite end free of osteomyelitis. . C. Right fifth metatarsal: - Benign bone segment with osteomyelitis at one end and opposite end free of osteomyelitis. - Prominent acute inflammation of attached fibrofatty soft tissue and severe calcifying arteriosclerosis. (CHELSEA/db; 03/01/2019) LBQ/03/01/2019 . 02 Electronically signed: . Salomon Watkins MD, Pathologist NPI- [id number] . 01 Gross description: . A. The specimen is received in formalin, labeled "Mele Cooper, right third toe and metatarsal". Received is an amputated digit measuring 5.8 x 2.5 x 1.9 cm in greatest mentions. The bone margin is smooth and concave in appearance, consistent with disarticulation. The bone and soft tissue margins are inked black. The nail is present displaying a light caban and thickened appearance. On the lateral aspect adjacent to the nailbed, there is a well-circumscribed, irregular in contour and red-brown lesion measuring 1.0 x 0.6 cm, which is 2.0 cm from the closest skin margin. A full-thickness longitudinal cross-section is submitted from proximal to distal aspects in cassettes A1 through A3, following decalcification. A inside account representative section through the lesion is submitted in cassette [place] [address] PATHOLOGY RPT PROCEDURE Name: MELE COOPER Room: [facility].#: [id number] Admission: 02/24/19 Date of : 62 Discharge: Report #: [id number] Path Case #: [id number] Also received within the specimen container is an additional segment of bone, consistent with metatarsal, measuring 4.7 x 2.0 x 1.7 cm in greatest dimensions. One bone margin is smooth and convex in appearance, consistent with disarticulation, and the opposite bone margin is blunt in appearance, consistent with transection. The transected margin is inked black. A full-thickness longitudinal cross-section is submitted in cassettes A4 through A5, from transected to disarticulated aspects, following decalcification. . B. The specimen is received in formalin, labeled "Mele Cooper, right fourth metatarsal". Received is a segment of bone measuring 4.9 x 1.7 x 1.7 cm in greatest dimensions. One margin is smooth and convex in appearance, consistent with disarticulation, and the opposite margin is blunt to slightly jagged in appearance, consistent with transection. The transected margin is inked black. There is a suture present near the disarticulated margin, attached to a slight amount of soft tissue. A slight amount of orange ink is placed on the area where the suture was located. A full-thickness longitudinal cross-section is submitted from transected to disarticulated aspects in cassettes B1 and B2, following decalcification. The area where the suture was located is committed in cassette B1. . C. The specimen is received in formalin, labeled "Mele Cooper, right fifth metatarsal". Received is a segment of bone measuring 3.8 x 2.4 x 2.0 cm in greatest dimensions. One margin is blunt in appearance, consistent with transection. The opposite margin is jagged in appearance. A full-thickness longitudinal cross-section is submitted in cassette C1, following decalcification. (CAA; 02/26/2019) QAC/QAC . 02 Pathologist provided ICD-10: L97.519, M86.171, I70.201 . 02 CPT . 736511, 525973, 160417, 770126, [id number], [id number] Specimen Comment: A courtesy copy of this report has been sent to Specimen Comment: [phone], . Specimen Comment: Report sent to / DR HINES Performed at: 01 [facility] [id number], [place], [place] [id number] MD Sarabjit Munroe MD Phone: [phone] Performed at: 02 [facility] [address], [place], [place] [id number] MD Salomon Watkins MD Phone: [phone]
== END | disposition home or self-care (01) ==
LOC: M.SUR 06:24
PROVIDERS: Podiatrist Foot & Ankle Surgery
DX: E11.621 Type 2 diabetes mellitus with foot ulcer (principal); M86.171 Other acute osteomyelitis, right ankle and foot; L97.519 Non-pressure chronic ulcer of other part of right foot with unspecified severity; M79.89 Other specified soft tissue disorders; I70.201 Unspecified atherosclerosis of native arteries of extremities, right leg; Z86.73 Personal history of transient ischemic attack (TIA), and cerebral infarction without residual deficits; Z79.82 Long term (current) use of aspirin; Z79.899 Other long term (current) drug therapy; Z79.4 Long term (current) use of insulin